=== PATIENT | female | born 1950 | race Caucasian/White ===

== ENCOUNTER → 2019-01-11 08:55 | Outpatient (CLI) | payer MEDICARE, OTHER, SELFPAY ==
--- NOTE | 2019-01-12 15:59 | PM.PFT.1 ---
Pulmonary Function Test Referral & Results Date Patient Seen: 01/11/19 Requesting provider: Nahomy Groves Results: The spirometry demonstrates an FVC of 2.99 L which is 92% of predicted. The FEV1 was measured at 2.51 L which is 101% of predicted. The FEV1/FVC ratio was he before which is 109% of predicted. Following the administration of bronchodilator there was no significant change to above normal numbers. Lung volumes show an SVC of 3.12 L which is 102% of predicted. The diffusing capacity was measured at 21.88 which is 85% of predicted. No hemoglobin value was provided, so no correction for potential anemia could be made, if appropriate. The maximum voluntary ventilation was normal Interpretation: This study demonstrates probably normal pulmonary function. The may be minimal decline in diffusing capacity but I would interpret this as more likely normal
== END ==
PROVIDERS: PCP Internal Medicine; Referring Provider Naturopath; Visit Provider Internal Medicine
DX: R05 Cough (principal)
CPT/HCPCS: 94060; 94726; 94729

== ENCOUNTER → 2019-01-22 09:35 | Outpatient (CLI) | payer MEDICARE, OTHER, SELFPAY ==
--- NOTE | 2019-01-22 | DI.MG.S_ITS ---
BILATERAL DIGITAL SCREENING MAMMOGRAM 3D/2D WITH CAD: 01/22/2019 CLINICAL: Routine screening. Comparison is made [facility] and 04/[facility]2012 [facility]. The tissue of both breasts is heterogeneously dense. This may lower the sensitivity of mammography. Current study was also evaluated with a Computer Aided Detection (CAD) system. No significant masses, calcifications, or other findings are seen in either breast. There has been no significant interval change. IMPRESSION: NEGATIVE There is no mammographic evidence of malignancy. A 1 year screening mammogram is recommended. This exam was interpreted at Station ID: [id number]. NOTE: For mammograms, a report in lay terms will be sent to the patient. Approximately 15% of breast malignancies will not be visualized mammographically. In the management of a palpable breast mass, a negative mammogram must not discourage biopsy of a clinically suspicious lesion. Electronically Signed By: Rosie hadley/kirill:01/22/2019 16:49:09 copy to: Shailesh Marquis letter sent: Normal Exam ACR BI-RADS Category 1: Negative [id number]
--- NOTE | 2019-01-22 | DI.RAD.S_ITS ---
PROCEDURE: XR CHEST 2V INDICATIONS: CHRONIC COUGH TECHNIQUE: 2 views of the chest were acquired. COMPARISON: None. FINDINGS: Surgical changes and devices: None. Lungs and pleura: Lungs are clear. No pleural effusions or pneumothorax. Mediastinum: Mediastinal contours are normal. Heart size is normal. Bones and chest wall: No suspicious bony abnormalities. Soft tissues appear unremarkable. IMPRESSION: Chest without acute cardiopulmonary abnormalities. No focal consolidation. Dictated by: Juan Antonio Zavaleta M.D. on 01/22/2019 at 12:47 Approved by: Juan Antonio Zavaleta M.D. on 01/22/2019 at 12:47
--- NOTE | 2019-01-22 | DI.US.S_ITS ---
PROCEDURE: US THYROID INDICATIONS: NODULE TECHNIQUE: Real-time scanning was performed of the thyroid gland, with image documentation. COMPARISON: None. FINDINGS: Right: Thyroid lobe measures 3.5 x 1.3 x 1.2 cm, and is homogeneous in echotexture. 1.6 cm midpole calcification. Left: Thyroid lobe measures 3.8 x 1.1 x 1.3 cm, and is homogenous in echotexture. Isthmus: 3.0 mm thick. Nodule number: 1 Location: Right mid. Size: 0.8 x 0.7 x 0.4 cm. Composition: Predominant solid Echogenicity: Hypoechoic Shape: wider than tall. Margins: Smooth Echogenic foci: None Total points: 4 ACR TI-RADS category: Moderately suspicious IMPRESSION: Moderately suspicious subcentimeter right thyroid nodule. Recommend continued followup ultrasound as detailed below. ACR TI-RADS definitions and recommendations: TI-RADS 1 (benign): 0 points. FNA not needed. TI-RADS 2 (not suspicious): 2 points. FNA not needed. TI-RADS 3 (mildly suspicious): 3 points. * FNA if 2.5 cm or larger, follow up if 1.5 cm or larger (at 1, 3, and 5 years). TI-RADS 4 (moderately suspicious): 4-6 points. * FNA if 1.5 cm or larger, follow up if 1 cm or larger (at 1, 2, 3, and 5 years). TI-RADS 5 (highly suspicious): 7 points or more. * FNA if 1 cm or larger, follow up if 0.5 cm or larger (every year for 5 years). Dictated by: Franklyn MALLORY Interpreted: Tarik Chavez MD on 01/22/2019 at 13:40 Approved by: Tarik Chavez M.D. on 01/22/2019 at 17:46
--- NOTE | 2019-01-22 | DI.RAD.S_ITS ---
PROCEDURE: FL BARIUM SWALLOW INDICATIONS: DYSPHAGIA,THYROID NODULE COMPARISON: None. FINDINGS: Function: There is predominantly normal esophageal peristalsis with occasional episodes of tertiary contractions resulting in delayed and retrograde flow of ingested oral contrast. There was spontaneous gastroesophageal reflux of contrast to the level of the thoracic inlet. No stress maneuvers were required to elicit reflux. There is normal transit of a calibrated barium tablet through the esophagus into the stomach. Morphology: Air-contrast images demonstrate normal mucosal morphology. Single contrast views show no esophageal strictures, extrinsic mass effects, or diverticula. Limited images of the stomach demonstrate normal appearance. IMPRESSION: 1. Several episodes of tertiary contractions resulting in delayed as well as retrograde flow of ingested oral contrast. 2. Spontaneous gastroesophageal reflux of ingested contrast to the level of the thoracic inlet. Dictated by: Juan Antonio Zavaleta M.D. on 01/22/2019 at 17:39 Approved by: Juan Antonio Zavaleta M.D. on 01/22/2019 at 17:43
[2019-01-22 09:56] LABS: Bacteria Urine None Seen; RBC Urine None Seen (0-5/HPF)
[2019-01-22 12:10] LABS: Add Manual Diff / Slide Review NO; Appearance Urine UA CLEAR; Basophils Absolute Auto 100 /uL (0-100); Basophils Percent Auto 1.4 % (0-2); Bilirubin Urine UA NEGATIVE (NEGATIVE); Color Urine UA YELLOW; Eosinophils Absolute Auto 300 /uL (0-450); Eosinophils Percent Auto 6.2 % (2-4); Glucose Urine UA NEGATIVE (Negative); Hematocrit 45.1 % (36-46); Hemoglobin 15.4 g/dL (12.0-16.0); Ketones Urine UA NEGATIVE (NEGATIVE); Leukocyte Esterase Urine UA TRACE (NEGATIVE); Lymphocytes Absolute Auto 1200 /uL (1100-4500); Mean Corpuscular Hemoglobin 29.7 PG (26-34); Mean Corpuscular Volume 87.3 fL (80-100); Monocytes Absolute Auto 500 /uL (0-900); Monocytes Percent Auto 8.8 % (3-14); Neutrophils Absolute Auto 3100 /uL (1500-7000); Neutrophils Percent Auto 60.6 % (50-75); Nitrite Urine UA NEGATIVE (Negative); Occult Blood Urine UA NEGATIVE (Negative); Platelet Count 269 X10^3/uL (150-400); Protein Urine UA NEGATIVE (Negative); Red Blood Cell Count 5.17 X10^6/uL (4.0-5.2); Red Cell Distribution Width 12.9 % (11.6-14.8); Specific Gravity Urine UA <=1.005 (1.000-1.035); Urobilinogen Urine UA 0.2 E.U./dL (0.2); White Blood Cell Count 5.1 X10^3/uL (4.5-11.0)
[2019-01-22 12:15] LABS: WBC Urine 0-1/HPF (0-5/HPF)
[2019-01-22 12:44] LABS: Alanine Aminotransferase 40 IU/L (9-52); Albumin 4.4 g/dL (3.5-5.0); Albumin Globulin Ratio 1.7 (1.0-2.8); Alkaline Phosphatase 92 U/L (38-126); Aspartate Aminotransferase 39 IU/L (14-36); Blood Urea Nitrogen 17 mg/dL (7-17); Calcium 9.5 mg/dL (8.4-10.2); Carbon Dioxide 27 mmol/L (22-32); Chloride 102 mmol/L (98-107); Cholesterol 291 mg/dL (140-199); Estimated Glomerular Filt Rate 55.5 mL/min (>60); Globulin 2.6 g/dL (1.7-4.1); Glucose 84 mg/dL (80-110); HDL Cholesterol 69 mg/dL (40-60); HEMOLYSIS < 15 (0-50); LDL Cholesterol Calculated 204 mg/dL (<100); Potassium 3.9 mmol/L (3.4-5.1); Sodium 139 mmol/L (137-145); Triglycerides 88 mg/dL (35-150)
[2019-01-22 13:12] LABS: TSH w/ Reflex to FT4 2.04 uIU/mL (0.47-4.68)
[2019-01-22 13:24] LABS: Vitamin B12 286 pg/mL (239-931)
[2019-01-22 15:30] LABS: Vitamin D 25 Hydroxy (D3) 45.4 ng/mL (30.0-100.0)
[2019-01-25 13:51] LABS: RPR Screen Nonreactive (Nonreactive)
== END ==
PROVIDERS: Family Provider Naturopath; PCP Internal Medicine; Visit Provider Internal Medicine
DX: Z12.31 Encounter for screening mammogram for malignant neoplasm of breast (principal); Z13.220 Encounter for screening for lipoid disorders; Z00.00 Encounter for general adult medical examination without abnormal findings; E04.1 Nontoxic single thyroid nodule; R13.10 Dysphagia, unspecified; R05 Cough; R35.0 Frequency of micturition; R41.3 Other amnesia; M81.0 Age-related osteoporosis without current pathological fracture; E55.9 Vitamin D deficiency, unspecified; K21.9 Gastro-esophageal reflux disease without esophagitis
CPT/HCPCS: 36415; 71046; 74220; 76536; 77063; 77067; 80053; 80061; 81001; 82306; 82607; 84443; 85025; 86592

== ENCOUNTER → 2019-10-26 12:27 | Outpatient (CLI) | payer MEDICARE, OTHER, SELFPAY ==
--- NOTE | 2019-10-26 | DI.US.S_ITS ---
PROCEDURE: US THYROID INDICATIONS: THYROID NODULE TECHNIQUE: Real-time scanning was performed of the thyroid gland, with image documentation. COMPARISON: [facility], US, US THYROID, 01/22/2019, 12:01. FINDINGS: Right: Thyroid lobe measures 3.8 x 1.3 x 1.2 cm, and is homogeneous in echotexture. 2 mm calcification. Left: Thyroid lobe measures 3.6 x 1.3 x 1.2 cm, and is homogenous in echotexture. 15 mm calcification. Isthmus: 3.0 mm thick. Nodule number: 1 Location: Right mid Size: Unchanged at 0.8 x 0.7 x 0.4 cm. Composition: Predominantly solid Echogenicity: Hypoechoic Shape: wider than tall. Margins: Smooth Echogenic foci: None Total points: 4 ACR TI-RADS category: Moderately suspicious IMPRESSION: Stable appearance of right thyroid nodule. Given the subcentimeter size, no additional follow-up is warranted. ACR TI-RADS definitions and recommendations: TI-RADS 1 (benign): 0 points. FNA not needed. TI-RADS 2 (not suspicious): 2 points. FNA not needed. TI-RADS 3 (mildly suspicious): 3 points. * FNA if 2.5 cm or larger, follow up if 1.5 cm or larger (at 1, 3, and 5 years). TI-RADS 4 (moderately suspicious): 4-6 points. * FNA if 1.5 cm or larger, follow up if 1 cm or larger (at 1, 2, 3, and 5 years). TI-RADS 5 (highly suspicious): 7 points or more. * FNA if 1 cm or larger, follow up if 0.5 cm or larger (every year for 5 years). Dictated by: Franklyn Charles [facility] Interpreted: Vee Ruvalcaba MD on 10/26/2019 at 13:19 Approved by: Vee Ruvalcaba M.D. on 10/26/2019 at 15:05
== END ==
PROVIDERS: Family Provider Naturopath; PCP Internal Medicine; Referring Provider Internal Medicine; Visit Provider Internal Medicine
DX: E04.1 Nontoxic single thyroid nodule (principal)
CPT/HCPCS: 76536

== ENCOUNTER → 2019-11-20 19:47 | Outpatient (ROUT) | payer MEDICARE, OTHER, SELFPAY ==
[2019-11-20 20:11] LABS: Alanine Aminotransferase 63 IU/L (<35); Alkaline Phosphatase 101 U/L (38-126); Aspartate Aminotransferase 43 IU/L (14-36); Bilirubin Total 0.6 mg/dL (0.2-1.3); Gamma Glutamyl Transpeptidase 120 U/L (12-43)
[2019-11-20 20:42] LABS: Ferritin 66 ng/mL (11-264)
== END ==
PROVIDERS: Family Provider Naturopath; PCP Internal Medicine; Visit Provider Internal Medicine
DX: R74.0 Nonspecific elevation of levels of transaminase and lactic acid dehydrogenase [LDH] (principal); L65.9 Nonscarring hair loss, unspecified
CPT/HCPCS: 82247; 82728; 82977; 84075; 84450; 84460

== ENCOUNTER → 2019-11-29 12:10 | Outpatient (CLI) | payer MEDICARE, OTHER, SELFPAY ==
[2019-11-29 16:31] LABS: Hepatitis B Surface Antigen NEGATIVE s/c (NEGATIVE)
[2019-11-29 16:49] LABS: Hep C Virus Ab w/Reflex Quant NEGATIVE s/c (NEGATIVE)
[2019-11-30 15:42] LABS: ANA Screen, IFA Negative (.)
[2019-12-03 11:10] LABS: Smooth Muscle Antibody 4 Units (0-19)
== END ==
PROVIDERS: Internal Medicine Gastroenterology; Family Provider Naturopath; PCP Internal Medicine; Referring Provider Physician Assistant; Visit Provider Physician Assistant
DX: Z13.9 Encounter for screening, unspecified (principal); N18.9 Chronic kidney disease, unspecified
CPT/HCPCS: 36415; 83516; 86038; 86803; 87340

== ENCOUNTER → 2019-12-23 14:22 | Outpatient (CLI) | payer MEDICARE, OTHER, SELFPAY ==
[2019-12-24 14:37] LABS: COVID19 Sendout Not Detected (Not Detect)
== END ==
PROVIDERS: Family Provider Naturopath; PCP Internal Medicine; Visit Provider Physician Assistant
DX: Z11.59 Encounter for screening for other viral diseases (principal)
CPT/HCPCS: 87635

== ENCOUNTER 2019-12-26 11:37 | Day surgery (SDC) | payer MEDICARE, OTHER, SELFPAY ==
--- NOTE | 2019-12-26 | PATH_ITS ---
[facility] Accession Number: [id number] . 01 Material submitted: . esophagus - ESOPHAGEAL ESO . 02 Diagnosis: Esophagus, Biopsy: Squamous epithelium with no diagnostic abnormality. Intraepithelial eosinophils are not increased. Negative for dysplasia and malignancy. MRV 12/28/2019 1038 Local . 02 Electronically signed: . Adriana Eckert MD, Pathologist NPI- [id number] . 01 Gross description: . ESOPHAGEAL ESO: Received in formalin are 2 fragment(s) of valle, soft tissue measuring 0.1 x 0.1 x 0.1 cm in aggregate submitted entirely in 1 cassette(s) /YOVANA 12/27/20192 Local . 02 Pathologist provided ICD-10: R13.10 . 02 CPT . 475914 Performed at: 01 [facility] [address] [id number] MD Felipe Garcia MD Phone: [phone] Performed at: 02 [facility] [address] [place], [place] [id number] MD Adriana Eckert MD Phone: [phone]
[2019-12-26 12:10] VITALS: BP 130/76; PULSE 82; RESP 16; TEMP 36.3; O2SAT 99; BMI 29.1
--- NOTE | 2019-12-26 13:07 | PM.HP.1 ---
History of Present Illness History of Present Illness Date Patient Seen: 12/26/19 Chief complaint: SDC Narrative: Dysphagia Patient History Surgical History History of cataract removal with insertion of prosthetic lens History of cataract removal with insertion of prosthetic lens History of third molar tooth extraction History of tonsillectomy Status post tubal ligation Family & Social History Family History Father Diabetes mellitus Parkinson's disease Heart disease Essential hypertension High cholesterol Grandfather Heart disease Mother Age: 90 Essential hypertension Social History: household members none Tobacco & Substance use: Smoking Status Never smoker alcohol intake never Substance Use Type does not use Meds Home Medications and Allergies Home Medications Medication Instructions Recorded Confirmed Type cyclobenzaprine 10 mg PO PRN PRN #0 04/12/16 12/26/19 History zolpidem 10 mg PO HSP PRN #0 04/12/16 12/26/19 History metronidazole 1 applic TOPICAL DAILY 12/26/19 12/26/19 History Allergies Allergy/AdvReac Type Severity Reaction Status Date / Time adhesive tape [ADHESIVE TAPE] Allergy Unknown Verified 12/26/19 12:04 Exam Vital Signs (past 8 hours): - 12/26/19 12:10 Temperature 97.4 F L Pulse Rate 82 Respiratory Rate 16 Blood Pressure 130/76 Pulse Oximetry 99 Oxygen Delivery Method Room Air Narrative Exam Narrative: Oropharynx free of lesions Chest clear to auscultation percussion Cardiac exam reveals no S3 or murmur Assessment & Plan Assessment & Plan narrative: Dysphagia. Need for upper endoscopy to help sort out issues with previous wide-open Schatzki's ring and with eosinophilic esophagitis. Risks, benefits, alternatives have been explained.
--- NOTE | 2019-12-26 13:08 | PM.OP.ENDO ---
Operative Date/Time/Diagnoses Date of procedure: 12/26/19 Pre-op diagnosis: See indication and findings Procedure & Clinicians Study performed: EGD Same procedure as scheduled: Yes Indications: Dysphagia Surgeon: Daja Hudson Procedure Notes Procedure in detail: After informed consent was obtained the patient was placed in left lateral decubitus position. Video upper scope placed into the oropharynx and with the patient's help swallowed into the esophagus. The esophagus stomach and duodenum were carefully examined. On withdrawal, retroflexed view the GE junction was performed. The scope was removed. The patient tolerated procedure well. Blood loss none Complications none Sedation Total sedation time he had minutes Fentanyl 100 mg Versed 5 mg IV titration Findings 1. Faint rings in the mid to distal esophagus biopsies taken to rule out eosinophilic esophagitis 2. Wide-open Schatzki's ring 3. Normal stomach 4. Normal duodenal bulb and sweep Will be in touch regarding the esophageal biopsies. Her dysphagia is very infrequent at this point. No dilation was performed.
[2019-12-26] MEDS: MIDAZOLAM 5 MG/5 ML VIAL IV (13:18)
[2019-12-26] MEDS: fentaNYL 250 MCG/5 ML INJ IV (13:18)
[2019-12-26 13:32] VITALS: BP 126/77; PULSE 82; RESP 16; TEMP 36.6; O2SAT 98
[2019-12-26 13:37] VITALS: BP 118/71; PULSE 77; RESP 9; TEMP 36.1; O2SAT 98
[2019-12-26 13:42] VITALS: BP 118/71; PULSE 87; RESP 19; TEMP 36.6; O2SAT 98
[2019-12-26 13:47] VITALS: BP 115/77; PULSE 81; RESP 19; TEMP 36.2; O2SAT 99
[2019-12-26 14:14] VITALS: BP 115/70; PULSE 68; RESP 16; TEMP 36.6; O2SAT 99
== END 2019-12-26 14:15 | disposition home or self-care (01) ==
PROVIDERS: Family Provider Naturopath; PCP Internal Medicine; Referring Provider Internal Medicine Gastroenterology; Visit Provider Internal Medicine Gastroenterology
PROC: 0DJ08ZZ Inspection of Upper Intestinal Tract, Via Natural or Artificial Opening Endoscopic (ICD-10-PCS; CPT 43235; principal; 2019-12-26 13:00)
DX: K22.2 Esophageal obstruction (principal); E78.5 Hyperlipidemia, unspecified; K21.9 Gastro-esophageal reflux disease without esophagitis
CPT/HCPCS: 43239; J2250; J3010

== ENCOUNTER → 2020-06-26 13:46 | Outpatient (CLI) | payer MEDICARE, OTHER, SELFPAY ==
[2020-06-26 16:23] LABS: Alanine Aminotransferase 41 IU/L (<35); Albumin 4.4 g/dL (3.5-5.0); Albumin Globulin Ratio 1.8 (1.0-2.8); Alkaline Phosphatase 83 U/L (38-126); Aspartate Aminotransferase 34 IU/L (14-36); BUN Creatinine Ratio 15.9 (6-22); Bilirubin Total 0.7 mg/dL (0.2-1.3); Blood Urea Nitrogen 13 mg/dL (7-17); Calcium 9.8 mg/dL (8.4-10.2); Carbon Dioxide 26 mmol/L (22-32); Chloride 103 mmol/L (98-107); Cholesterol 269 mg/dL (140-199); Estimated Glomerular Filt Rate > 60.0 mL/min (>60); Globulin 2.5 g/dL (1.7-4.1); Glucose 90 mg/dL (80-110); HDL Cholesterol 96 mg/dL (40-60); HEMOLYSIS < 15 (0-50); LDL Cholesterol Calculated 161 mg/dL (<100); Potassium 4.5 mmol/L (3.4-5.1); Sodium 138 mmol/L (137-145); Total Protein 6.9 g/dL (6.3-8.2); Triglycerides 62 mg/dL (35-150)
== END ==
PROVIDERS: Family Provider Naturopath; PCP Student in an Organized Health Care Education/Training Program; Referring Provider Student in an Organized Health Care Education/Training Program; Visit Provider Student in an Organized Health Care Education/Training Program
DX: E78.49 Other hyperlipidemia (principal); K76.0 Fatty (change of) liver, not elsewhere classified; N18.1 Chronic kidney disease, stage 1; E04.1 Nontoxic single thyroid nodule
CPT/HCPCS: 36415; 80053; 80061; 84443

== ENCOUNTER → 2020-12-24 11:30 | Outpatient (CLI) | payer MEDICARE, OTHER, SELFPAY ==
--- NOTE | 2020-12-24 | DI.MG.S_ITS ---
BILATERAL DIGITAL SCREENING MAMMOGRAM 3D/2D WITH CAD: 12/24/2020 CLINICAL: Routine screening. Comparison is made to exams dated: 01/22/2019 mammogram - [facility], 08/24/2017 mammogram - [facility], and 07/05/2016 mammogram - [facility]. The tissue of both breasts is heterogeneously dense. This may lower the sensitivity of mammography. Current study was also evaluated with a Computer Aided Detection (CAD) system. There is an oval equal density asymmetry with an indistinct margin in the left breast anterior depth superior region seen on the mediolateral oblique view only. No other significant masses, calcifications, or other findings are seen in either breast. IMPRESSION: INCOMPLETE: NEEDS ADDITIONAL IMAGING EVALUATION The oval equal density asymmetry in the left breast is indeterminate. Mediolateral and spot compression views as well as additional views with possible ultrasound are recommended. This exam was interpreted at Station ID: [id number]. NOTE: For mammograms, a report in lay terms will be sent to the patient. Approximately 15% of breast malignancies will not be visualized mammographically. In the management of a palpable breast mass, a negative mammogram must not discourage biopsy of a clinically suspicious lesion. Electronically Signed By: Felipe fonseca/kirill:12/24/2020 15:10:18 letter sent: Additional Imaging Needed ACR BI-RADS Category 0: Incomplete 3340F
== END ==
PROVIDERS: Family Provider Naturopath; PCP Student in an Organized Health Care Education/Training Program; Referring Provider Physician Assistant; Visit Provider Physician Assistant
DX: Z13.820 Encounter for screening for osteoporosis (principal); Z12.31 Encounter for screening mammogram for malignant neoplasm of breast; N95.8 Other specified menopausal and perimenopausal disorders; N64.89 Other specified disorders of breast; M85.852 Other specified disorders of bone density and structure, left thigh; M85.851 Other specified disorders of bone density and structure, right thigh; M85.88 Other specified disorders of bone density and structure, other site
CPT/HCPCS: 77063; 77067; 77080

== ENCOUNTER → 2021-01-09 13:17 | Outpatient (CLI) | payer MEDICARE, OTHER, SELFPAY ==
--- NOTE | 2021-01-09 | DI.US.S_ITS ---
LIMITED ULTRASOUND OF LEFT BREAST: 01/09/2021 CLINICAL: Patient returns today to evaluate an asymmetry in the left breast. Comparison is made to exams dated: 01/09/2021 mammogram, 12/24/2020 mammogram, 01/22/2019 mammogram - [facility], and 08/24/2017 mammogram - [facility]. Color flow and real-time ultrasound of the left breast 3-5 o'clock region were performed. Kyle scale images of the real-time examination were reviewed. No significant abnormalities were seen sonographically in the left breast. Fibroglandular tissue but no mass is identifed in the area of the mammographic asymmetry in the left breast anterior depth. IMPRESSION: NEGATIVE No sonographic abnormality is seen corresponding to the mammographic asymmetry in the left breast, which is compatible with normal fibroglandular tissue. Return to screening mammograms is recommended. There is no sonographic evidence of malignancy. A 1 year screening mammogram is recommended. This exam was interpreted at Station ID: [id number]. Electronically Signed By: Mark recinos/kirill:01/09/2021 14:47:14 letter sent: Normal Exam Ultrasound BI-RADS: 1 Negative
--- NOTE | 2021-01-09 | DI.MG.S_ITS ---
UNILATERAL LEFT DIGITAL DIAGNOSTIC MAMMOGRAM 3D/2D WITH ADDITIONAL VIEWS: 01/09/2021 CLINICAL: Additional evaluation requested from prior study. Comparison is made to exams dated: 12/24/2020 mammogram, 01/22/2019 mammogram - [facility], and 08/24/2017 mammogram - [facility]. The tissue of left breast is heterogeneously dense. This may lower the sensitivity of mammography. The oval asymmetry in the left breast anterior depth central to the nipple seen on the mediolateral oblique view only is no longer seen. No other significant masses or calcifications are seen in the breast. IMPRESSION: INCOMPLETE: NEEDS ADDITIONAL IMAGING EVALUATION An ultrasound is recommended to confirm the no longer seen oval asymmetry in the left breast anterior depth central to the nipple seen on the mediolateral oblique view only. This exam was interpreted at Station ID: [id number]. NOTE: For mammograms, a report in lay terms will be sent to the patient. Approximately 15% of breast malignancies will not be visualized mammographically. In the management of a palpable breast mass, a negative mammogram must not discourage biopsy of a clinically suspicious lesion. Electronically Signed By: Mark recinos/kirill:01/09/2021 14:45:30 ACR BI-RADS Category 0: Incomplete [id number]
== END ==
PROVIDERS: Family Provider Naturopath; PCP Student in an Organized Health Care Education/Training Program; Referring Provider Physician Assistant; Visit Provider Physician Assistant
DX: R92.8 Other abnormal and inconclusive findings on diagnostic imaging of breast (principal)
CPT/HCPCS: 76642; 77065; G0279

== ENCOUNTER 2022-09-24 17:37 | Emergency (ER) | payer MEDICARE, OTHER, SELFPAY ==
[2022-09-24 18:07] VITALS: BP 168/84; PULSE 88; RESP 20; TEMP 36.9; O2SAT 98; BMI 29.9
--- NOTE | 2022-09-24 18:17 | DI.US.S_ITS ---
PROCEDURE: US PERIPH VENOUS LOW EXTREM RT INDICATIONS: RIGHT CALF SWELLING TECHNIQUE: Real-time imaging, as well as color and pulse Doppler interrogation, were performed of the lower extremity deep veins from the inguinal ligament to the popliteal fossa. COMPARISON: None. FINDINGS: The common femoral, femoral and popliteal veins are normally compressible, and free of intraluminal thrombus. Color and pulse Doppler demonstrate normal phasic intraluminal flow. There is normal augmentation response to distal compression maneuver. A septated fluid collection is seen in the medial popliteal fossa measuring 2.9 x 0.9 x 2.5 cm. IMPRESSION: 1. No sonographic evidence of deep venous thrombosis in the right lower extremity. 2. Small medial popliteal Josue's cyst. Approved by: Mark Hankins M.D. on 09/24/2022 at 19:12
[2022-09-24 19:50] VITALS: BP 167/81; PULSE 75; RESP 16; O2SAT 100
--- NOTE | 2022-09-24 21:13 | PC.NURSE ---
Pt has swelling from right knee down with yellow discoloration. Pt reports recent acupuncture on Tuesday. Pt has been seeing Dr. Rhonda Lockwood for her right knee.
--- NOTE | 2022-09-24 21:24 | ED_ITS ---
HPI - Extremity Problem General Chief complaint: Extremity Problem,Nontraumatic Stated complaint: Poss DVT Time Seen by Provider: 09/24/22 21:20 Source: patient Mode of arrival: Ambulatory History of Present Illness HPI Narrative: Patient is a 72-year-old female who presents today with right leg pain swelling and contusion. She does not remember injuring it. She says she has chronic knee pain she actually has an appointment with an orthopedic surgeon next week. She is not on any antiplatelet or anticoagulation medication she has a spontaneous bruise on her right calf. She did good acupuncture she always goes to acupuncture never had bruising before. Concern today due to swelling. She is able to ambulate without any difficulty. Related Data Home Medications Medication Instructions Recorded Confirmed cyclobenzaprine 10 mg tablet 10 mg PO PRN PRN Muscle Spasm ##0 04/12/16 10/17/20 metronidazole 0.75 % topical cream 1 applic topical DAILY 12/26/19 10/17/20 Previous Rx's Medication Instructions Recorded zolpidem 5 mg tablet 5 mg PO BEDTIME PRN Sleep #30 tabs 06/16/20 CMP Estradiol 0.0125% Vaginal Cream 1 g vaginal .COMPLEX #42.5 grams 10/28/20 Allergies Allergy/AdvReac Type Severity Reaction Status Date / Time gabapentin Allergy Severe Hypertensio Verified 09/24/22 18:10 n adhesive tape [ADHESIVE TAPE] Allergy Unknown Verified 09/24/22 17:44 Review of Systems Review of Systems ROS Unobtainable: All systems reviewed & are unremarkable except as noted in HPI and below Patient History Surgical History History of cataract removal with insertion of prosthetic lens History of cataract removal with insertion of prosthetic lens History of third molar tooth extraction History of tonsillectomy Status post tubal ligation Family History Father Diabetes mellitus Parkinson's disease Heart disease Essential hypertension High cholesterol Grandfather Heart disease Mother Age: 93 Essential hypertension Social History household members: none Smoking Status: Never smoker alcohol intake: never Smoking Status: Never smoker Substance Use Type: does not use Exam Initial Vital Signs Initial Vital Signs: Vital Signs Temperature 98.4 F 09/24/22 18:07 Pulse Rate 88 06/23/23 18:07 Respiratory Rate 20 09/24/22 18:07 Blood Pressure 168/84 H 09/24/22 18:07 Pulse Oximetry 98 09/24/22 18:07 Oxygen Delivery Method Room Air 09/24/22 18:07 GENERAL: Alert pleasant 72-year-old female CARDIOVASCULAR: peripheral pulses in tact, cap refill <2 sec RESPIRATORY: No respiratory distress, speaks in full sentences without difficulty EXTREMITIES: Normal range of motion, no clubbing or edema. Neurovascularly intact Right lower extremity knee is stable contusion noted on calf minimal swelling distal pedal pulse intact ankle has no gross bony deformity NEUROLOGICAL: Cranial nerves II through XII grossly intact. Normal gait and speech. SKIN: Warm, dry, no petechiae, no rashes or lesions. Course Orders Ordered: Discontinued Medications Ibuprofen (Ibuprofen Susp 100 Mg/5 Ml Udc) 225 mg 10 mg/kg (225 mg) PO NOW ONE Stop: 09/24/22 17:45 Last Admin: 09/24/22 17:55 Dose: Not Given Documented By: [facility] Vital Signs Vital signs: Vital Signs - 8 hr 09/24/22 21:36 Pulse Rate 73 Respiratory Rate 16 Blood Pressure 167/84 H Pulse Oximetry 99 Oxygen Delivery Method Room Air MDM - Extremity (Nontraumatic) Imaging Data US - DVT: Radiologist's Impression: PROCEDURE:? US PERIPH VENOUS LOW EXTREM RT ? INDICATIONS:? RIGHT CALF SWELLING ? TECHNIQUE:? Real-time imaging, as well as color and pulse Doppler interrogation, were performed of the lower extremity deep veins from the inguinal ligament to the popliteal fossa.? ? COMPARISON:? None. ? FINDINGS:? The common femoral, femoral and popliteal veins are normally compressible, and free of intraluminal thrombus.? Color and pulse Doppler demonstrate normal phasic intraluminal flow.? There is normal augmentation response to distal compression maneuver. ? A septated fluid collection is seen in the medial popliteal fossa measuring 2.9 x 0.9 x 2.5 cm.? ? IMPRESSION:? 1. No sonographic evidence of deep venous thrombosis in the right lower extremity. 2. Small medial popliteal Josue's cyst. ? ? ? Approved by: Mark Hankins M.D. on 09/24/2022 at 19:12? [facility] Narrative Medical decision making narrative: Patient is a 72-year-old female presents today with right calf pain swelling. She is not had any recent travel no history of DVT. It is not significantly edematous or erythematous. She does have a small contusion on the calf. Not on antiplatelet or anticoagulation medication. All her sound shows a Josue's cyst without rupture and no evidence of DVT. At this time she overall appears well there is no further workup or evaluation. Discharge Plan Departure Patient Disposition: Home Clinical Impression: Josue's cyst, unruptured Instructions: DI for Josue Cyst Activity Restrictions/Additional Instructions: *You have been diagnosed with Josue's cyst *What to do: At this time you do have an unruptured Josue's cyst behind your knee. Likely to be causing her swelling. But there is no DVT. Elevate and ice as needed. *Continue to take medications as directed Ibuprofen 600 mg every 6 hours if needed for umtd-rq-ozbeehlp pain Tylenol 650 mg every 4-6 hours if needed for pswm-wd-rtatalgn pain *Follow up with your primary care provider in 2-3 days or call [phone] Lockwood as scheduled next week *Return to ER if you should have increasing pain swelling redness or any new, worsening or concerning symptoms Prescriptions: No Action cyclobenzaprine 10 MG tablet 10 mg PO PRN PRN (Reason: Muscle Spasm) Qty: 0 CMP Estradiol 0.0125% Vaginal Cream 1 g vaginal .COMPLEX Qty: 42.5 3RF Rx Instructions: Apply 1 gm vaginally at bedtime for 14 nights, then 2 times weekly. zolpidem 5 mg tablet 5 mg PO BEDTIME PRN (Reason: Sleep) Qty: 30 5RF metronidazole 0.75 % cream 1 applic TOPICAL DAILY Referrals: Jamey John MD [Physician] - Stand Alone Forms: Patient Portal/API
[2022-09-24 21:36] VITALS: BP 167/84; PULSE 73; RESP 16; O2SAT 99
== END 2022-09-24 21:38 | disposition home or self-care (01) ==
PROVIDERS: Emergency Provider Emergency Medicine; Family Provider Naturopath; PCP Internal Medicine
DX: M66.0 Rupture of popliteal cyst (principal)
CPT/HCPCS: 93971; 99281; 99283

== ENCOUNTER → 2022-10-09 10:43 | Outpatient (CLI) | payer MEDICARE, OTHER, SELFPAY ==
--- NOTE | 2022-10-09 10:44 | DI.MRI.S_ITS ---
PROCEDURE: MR KNEE RT WO CON INDICATIONS: Unilateral primary osteoarthritis, right knee TECHNIQUE: Noncontrast sagittal PD fast spin echo and T2 fast spin echo with fat saturation, sagittal 3-D FLASH with fat saturation; coronal T1 spin echo and PD fast spin echo with fat saturation, and axial PD fast spin echo with fat saturation through the knee. COMPARISON: [facility] [place], CR, XR KNEE 4+ VIEWS RIGHT, 06/25/2022, 15:38. FINDINGS: Image quality: Excellent. Anterior Cruciate Ligament: Intact. Posterior Cruciate Ligament: Intact. Medial Collateral Ligament: Intact. Lateral Collateral Ligament: Intact. Medial Meniscus: Undersurface tearing is seen at the body of the medial meniscus extending to the junction with the posterior horn. There is a small centrally displaced meniscal flap tear at the posterior root attachment. Lateral Meniscus: Mild free edge fibrillation of the meniscal body without a discrete tear. Medial and Lateral Tendons: The semimembranosus tendon insertions and meniscocapsular junction appear intact. Visualized portions of the pes anserinus tendons appear normal. No abnormal bursal fluid. The long and short heads of the biceps femoris tendon appear intact. The popliteus tendon appears intact. No signs of posterolateral corner injury. Iliotibial band appears normal. Anterior Structures: The quadriceps and patellar tendons appear intact. Congenitally shallow trochlear groove is seen with lateral patellar tilting but no significant patellar subluxation. No edema in the infrapatellar fat pad. Bones: No acute trabecular bone injury or fracture. Medial Femorotibial Cartilage: High-grade partial-thickness cartilage irregularity is seen throughout the medial femoral condyle with subchondral edema and marginal osteophyte formation. Moderate to high-grade cartilage loss is also seen at the medial tibial plateau. Lateral Femorotibial Cartilage: Mild partial-thickness cartilage thinning without a focal defect. Patellofemoral Cartilage: Full-thickness cartilage loss is seen at the lateral patellar facet with subchondral cystic changes. Background high-grade partial-thickness cartilage irregularity is seen throughout the patella. Soft Tissues: There is a moderate joint effusion. A small medial popliteal cyst is seen with surrounding edema that may indicate prior cyst rupture. No medial popliteal cyst. The musculature surrounding the knee is normal in bulk. IMPRESSION: 1. Complex tearing of the medial meniscus with a undersurface component at the meniscal body and a small centrally displaced meniscal flap component at the posterior root attachment. 2. Intrasubstance degeneration and mild free edge fibrillation at the body of the lateral meniscus without a discrete tear. 3. Tricompartmental osteoarthrosis, which is most notable in the patellofemoral compartment with there is full-thickness cartilage loss at the lateral patellar facet with subchondral cystic changes. Grade 3-4 chondromalacia is seen throughout the medial femorotibial compartment. Mild grade 2 chondromalacia in the lateral compartment. Small tricompartmental marginal osteophytes are present. 4. Cruciate and collateral ligaments are intact. No acute trabecular bone injury. 5. Moderate joint effusion. Small medial popliteal cyst with signs of prior cyst rupture. Approved by: Mark Hankins M.D. on 10/11/2022 at 11:17
== END ==
PROVIDERS: Family Provider Naturopath; PCP Internal Medicine; Referring Provider Orthopaedic Surgery; Visit Provider Orthopaedic Surgery
DX: S83.231A Complex tear of medial meniscus, current injury, right knee, initial encounter (principal); M17.11 Unilateral primary osteoarthritis, right knee; M25.461 Effusion, right knee; M71.21 Synovial cyst of popliteal space [Baker], right knee
CPT/HCPCS: 73721

== ENCOUNTER → 2022-11-18 13:01 | Outpatient (CLI) | payer MEDICARE, OTHER, SELFPAY ==
[2022-11-18 14:32] LABS: Add Manual Diff / Slide Review NO; Basophils Absolute Auto 100 /uL (0-100); Basophils Percent Auto 1.4 % (0-2); Eosinophils Absolute Auto 300 /uL (0-450); Eosinophils Percent Auto 4.5 % (2-4); Hematocrit 42.3 % (36-46); Hemoglobin 14.7 g/dL (12.0-16.0); Lymphocytes Absolute Auto 1200 /uL (1100-4500); Lymphocytes Percent Auto 17.9 % (25-40); Mean Corpuscular HGB Conc 34.6 % (30-36); Mean Corpuscular Hemoglobin 29.7 PG (26-34); Mean Corpuscular Volume 85.8 fL (80-100); Monocytes Absolute Auto 600 /uL (0-900); Monocytes Percent Auto 8.6 % (3-14); Neutrophils Absolute Auto 4400 /uL (1500-7000); Neutrophils Percent Auto 67.6 % (50-75); Platelet Count 247 X10^3/uL (150-400); Red Blood Cell Count 4.93 X10^6/uL (4.0-5.2); Red Cell Distribution Width 13.5 % (11.6-14.8); White Blood Cell Count 6.5 X10^3/uL (4.5-11.0)
[2022-11-18 14:38] LABS: Hemoglobin A1C% w Est Avg Glu 5.3 % (4.0-6.0)
[2022-11-18 14:58] LABS: BUN Creatinine Ratio 14.9 (6-22); Blood Urea Nitrogen 11 mg/dL (7-17); Calcium 9.3 mg/dL (8.4-10.2); Carbon Dioxide 28 mmol/L (22-32); Chloride 100 mmol/L (98-107); Estimated Glomerular Filt Rate > 60 mL/min (>60); Glucose 85 mg/dL (80-110); HEMOLYSIS < 15 (0-50); Potassium 4.4 mmol/L (3.4-5.1); Sodium 134 mmol/L (137-145)
[2022-11-18 15:26] LABS: Appearance Urine UA CLEAR; Bilirubin Urine UA NEGATIVE (NEGATIVE); Color Urine UA YELLOW; Glucose Urine UA NEGATIVE (Negative); Ketones Urine UA NEGATIVE (NEGATIVE); Leukocyte Esterase Urine UA NEGATIVE (NEGATIVE); Nitrite Urine UA NEGATIVE (Negative); Occult Blood Urine UA NEGATIVE (Negative); Protein Urine UA NEGATIVE (Negative); Specific Gravity Urine UA <=1.005 (1.000-1.035); Urobilinogen Urine UA 0.2 E.U./dL (0.2)
[2022-11-18 15:37] LABS: Bacteria Urine None Seen; Culture Indicated Urine Cult Not Indicated; RBC Urine None Seen (0-5/HPF); Squamous Epithelial Cell Urine 0-1 /HPF (0-5/HPF); WBC Urine None Seen (0-5/HPF)
== END ==
PROVIDERS: Family Provider Naturopath; PCP Internal Medicine; Referring Provider Orthopaedic Surgery; Visit Provider Orthopaedic Surgery
DX: Z01.818 Encounter for other preprocedural examination (principal); R73.9 Hyperglycemia, unspecified; Z01.812 Encounter for preprocedural laboratory examination; N39.0 Urinary tract infection, site not specified
CPT/HCPCS: 36415; 80048; 81001; 83036; 85025; 93005

== ENCOUNTER → 2024-01-16 13:31 | Outpatient (CLI) | payer MEDICARE, OTHER, SELFPAY | PROVIDERS: Family Provider Naturopath; Visit Provider Obstetrics & Gynecology | DX: R30.0 Dysuria (principal) | CPT/HCPCS: 87086 ==

== ENCOUNTER → 2024-05-30 12:12 | Outpatient (CLI) | payer MEDICARE, OTHER, SELFPAY ==
--- NOTE | 2024-05-30 12:13 | DI.MG.S_ITS ---
BILATERAL DIGITAL SCREENING MAMMOGRAM 3D/2D WITH CAD: 05/30/2024 CLINICAL: Routine screening. Comparison is made to exams dated: 12/24/2020 mammogram, 01/22/2019 mammogram - [facility] [place], and 08/24/2017 mammogram - [facility]. The breasts are heterogeneously dense, which may obscure small masses (category c / 51-75% glandular tissue). Current study was also evaluated with a Computer Aided Detection (CAD) system. No significant masses, calcifications, or other findings are seen in either breast. There has been no significant interval change. IMPRESSION: NEGATIVE There is no mammographic evidence of malignancy. A 1 year screening mammogram is recommended. Based on the Tyrer Cuzick model (a risk assessment model) the patient's lifetime risk is 9.6% and her 10 year risk is 6.6%. According to the ACR, ACS, and NCCN guidelines, an annual breast MRI exam along with mammogram is recommended if the patient's lifetime risk is 20% or greater. This exam was interpreted at Station ID: [id number]. NOTE: For mammograms, a report in lay terms will be sent to the patient. Approximately 15% of breast malignancies will not be visualized mammographically. In the management of a palpable breast mass, a negative mammogram must not discourage biopsy of a clinically suspicious lesion. Electronically Signed By: Juan Antonio ga/[email or web address]:05/31/2024 06:17:52 letter sent: Normal Exam ACR BI-RADS Category 1: Negative
--- NOTE | 2024-05-30 12:14 | DI.RAD.S_ITS ---
PROCEDURE: XR DEXA AXIAL SKELETON INDICATIONS: ROUTINE SCREENING/OSTEOPENIA COMPARISON: [facility], , XR DEXA AXIAL SKELETON, 12/24/2020, 11:54. FINDINGS: Lumbar Spine (L4 excluded due to increased density: Bone mineral density 0.873 g/cm2, T score -1.3, previously -1.6. Left Femoral Neck: Bone mineral density 0.602 g/cm2, T score -2.2. Left Hip: Bone mineral density 0.717 g/cm2, T score -1.8, unchanged. Fracture Risk Calculation (when applicable): 10-year fracture risk of a major osteoporotic fracture 13 percent and of a hip fracture 2 point percent. (T score greater or equal to -1.0 to: NORMAL) (T score from -1.1 to -2.4: OSTEOPENIA) (T score less than or equal to -2.5: OSTEOPOROSIS) IMPRESSION: Osteopenia. Follow-up guidelines as follows: Osteoporosis: Consider a repeat DEXA and Vertebral Fracture Assessment (VFA) exam in 2 years or sooner if medically necessary, to reassess this patient's status. Osteopenia: Consider a repeat DEXA in 2-3 years to reassess this patient's status, or if there is a new clinical indication. Normal: Consider a repeat DEXA in 5 years or sooner, or if there is a new clinical indication. All treatment decisions require clinical judgment and consideration of individual patient factors, including patient preferences, comorbidities, previous drug use, risk factors not captured in the FRAX model (e.g., frailty, falls, vitamin D deficiency, increased bone turnover, interval significant decline in bone density ) and possible under- or over-estimation of fracture risk by FRAX. In addition, the NOF Guide recommends that FDA-approved medical therapies be considered in postmenopausal women and men age >= 50 years with a: * Hip or vertebral (clinical or morphometric) fracture * T-score of <=-2.5 at the spine or hip * Ten-year fracture probability by FRAX of >= 3% for hip fracture or >=20% for major osteoporotic fracture. Dictated by: Boby Dutton M.D. on 05/30/2024 at 16:44 Approved by: Boby Dutton M.D. on 05/30/2024 at 16:45
== END ==
PROVIDERS: Family Provider Naturopath
DX: Z12.31 Encounter for screening mammogram for malignant neoplasm of breast (principal); R92.333 Mammographic heterogeneous density, bilateral breasts; M85.89 Other specified disorders of bone density and structure, multiple sites
CPT/HCPCS: 77063; 77067; 77080

== ENCOUNTER → 2024-11-01 13:38 | Outpatient (CLI) | payer MEDICARE, OTHER, SELFPAY ==
--- NOTE | 2024-11-01 13:39 | DI.MRI.S_ITS ---
PROCEDURE: MR CERVICAL SPINE WO CON INDICATIONS: cervical pain TECHNIQUE: Noncontrast sagittal T1 spin echo and T2 fast spin echo, sagittal STIR, foraminal oblique sagittal T2 fast spin echo, and axial gradient echo or T2 fast spin echo through the cervical spine. COMPARISON: [facility], CR, XR CERVICAL SPINE WITH FLEXION EXTENSION, 09/26/2024, 15:32. FINDINGS: Image quality: Diagnostic Alignment and Curvature: Straightening of the normal cervical lordosis. Trace anterolisthesis of C4 on C5. Bone Marrow: No acute fracture. Multilevel disc space height loss and desiccation Spinal Cord: No significant cord signal abnormality. Paraspinous Soft Tissues: No paravertebral fluid collections identified. C2-C3: No stenosis C3-C4: Small posterior disc osteophyte complex. Mild uncovertebral and facet arthropathy. [id number] bilateral neural foraminal narrowing. C4-C5: Mild posterior disc osteophyte complex, facet, and uncovertebral arthropathy. Mild bilateral neural foraminal narrowing. C5-C6: [id number] posterior disc osteophyte complex. [id number] central narrowing, with slight indentation of the ventral cord on sagittal view. Bilateral uncovertebral and facet arthropathy. Moderate bilateral neural foraminal narrowing. C6-C7: This level is partially fused. Posterior disc osteophyte complex. Uncovertebral and facet arthropathy. [id number] bilateral neural foraminal narrowing. C7-T1: Posterior disc osteophyte complex. Uncovertebral and facet arthropathy. No stenosis. IMPRESSION: Overall mild and moderate degree of cervical spondylosis as described above, worst at C5-C6. Dictated by: Italo Dye M.D. on 11/02/2024 at 10:33 Approved by: Italo Dye M.D. on 11/02/2024 at 10:37
== END ==
LOC: MRI 13:39
PROVIDERS: Family Provider Naturopath; Referring Provider Physician Assistant Surgical; Visit Provider Physician Assistant Surgical
DX: S16.1XXA Strain of muscle, fascia and tendon at neck level, initial encounter (principal); M47.812 Spondylosis without myelopathy or radiculopathy, cervical region; M48.02 Spinal stenosis, cervical region; M54.2 Cervicalgia; X58.XXXA Exposure to other specified factors, initial encounter
CPT/HCPCS: 72141